=== PATIENT | male | born 1995 | race Two or more races ===

== ENCOUNTER 2025-04-08 20:18 | Emergency (ER) | payer MEDICAID, OTHER ==
[~2025-04-08] VITALS: Ht 188 cm; Wt 90.0 kg
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
[2025-04-08 20:55] VITALS: PULSE 61; RESP 20; O2SAT 99
[2025-04-08] MEDS: TETANUS-DIPTH-ACEL PERTUSSIS 0.5ML SYR Tdap IM ONE (20:59)
[2025-04-08] MEDS: ceFAZolin 1GM/50ML 50 ML IV ONE (21:00)
[2025-04-08 21:18] LABS: Hematocrit 37.8 % (41.0-53.0); Hemoglobin 13.3 g/dL (13.5-17.5); Mean Corpuscular Hemoglobin 30.3 pg (28.0-32.0); Mean Corpuscular Volume 86.5 fL (80.0-100.0); Nucleated Red Blood Cells % 0.3 %
[2025-04-08] MEDS: SODIUM CHLORIDE 0.9% 1,000 ML IV ONE (21:28)
[2025-04-08 21:29] LABS: Alanine Aminotransferase 29 U/L (7-40); Albumin 4.0 g/dL (3.2-4.8); Alkaline Phosphatase 49 U/L (46-116); Anion Gap 11 (5-15); BUN/Creatinine Ratio 10.1 (10.0-20.0); Carbon Dioxide 24 mmol/L (20-31); Sodium 144 mmol/L (136-145); Total Protein 6.6 g/dL (5.7-8.2)
[2025-04-08 21:38] LABS: Bilirubin, Total 2.0 mg/dL (0.2-1.0); Blood Urea Nitrogen 7 mg/dL (9-23); Calcium 7.8 mg/dL (8.7-10.4); Chloride 109 mmol/L (98-107); Glucose 109 mg/dL (74-106); Potassium 3.1 mmol/L (3.5-5.1)
--- NOTE | 2025-04-08 21:50 | DVH ---
CLINICAL INDICATION: OPEN FRACTURE TECHNIQUE: XYXY R FOREARM XRAY Comparison: None FINDINGS/IMPRESSION: : Highly comminuted open fracture of the distal radius and ulna with multiple displaced fracture fragments.
--- NOTE | 2025-04-08 21:50 | DVH ---
CLINICAL INDICATION: FRACTURE TECHNIQUE: XYXY R WRIST 3+ VIEW XRAY Comparison: XY R FOREARM XRAY on DOS: 04/08/25 FINDINGS/IMPRESSION: : Highly comminuted open fractures of the distal radius and ulna with intra- articular extension. Multiple displaced fracture fragments. Diffuse soft tissue gas and soft tissue swelling.
[2025-04-08] MEDS: fentaNYL CITRATE 100 MCG/2 ML VL IV ONE ×2 (21:56→23:56)
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
[2025-04-08] MEDS: LIDOCAINE W/ EPINEPHRINE 2% INJ 20ML VIAL IJ ONE (23:17)
[2025-04-09] MEDS: fentaNYL CITRATE 100 MCG/2 ML VL IV ONE (01:51)
[2025-04-09 01:53] VITALS: BP 123/64; PULSE 64; RESP 16; TEMP 98.2; O2SAT 94
== END 2025-04-09 01:09 | disposition short-term general hospital (02) ==
LOC: ER 20:18
DX: S62.101A Fracture of unspecified carpal bone, right wrist, initial encounter for closed fracture (principal); S01.111A Laceration without foreign body of right eyelid and periocular area, initial encounter; S01.511A Laceration without foreign body of lip, initial encounter; S01.01XA Laceration without foreign body of scalp, initial encounter; S61.511A Laceration without foreign body of right wrist, initial encounter; S06.0XAA Concussion with loss of consciousness status unknown, initial encounter; V86.56XA Driver of dirt bike or motor/cross bike injured in nontraffic accident, initial encounter; Y93.55 Activity, bike riding; Y92.488 Other paved roadways as the place of occurrence of the external cause; Y99.8 Other external cause status
CPT/HCPCS: 12001; 12013; 29125; 36415; 70450; 70486; 71250; 72125; 73090; 73110; 74176; 80053; 80320; 84484; 85025; 90471; 90715; 96361; 96365; 96375; 96376; 99291; A4649; J0690; J3010; J7030